=== PATIENT | female | born 1980 | race Caucasian/White ===

== ENCOUNTER 2019-09-04 13:14 | Emergency (ER) | payer OTHER ==
[~2019-09-04] VITALS: Ht 167.6 cm; Wt 77.1 kg
[~2019-09-04 13:14] MED LIST: ADDERALL 20 MG20 M1; ALLEGRA180 MG; AUGMENTIN 875875 MG PO; CELEXA 20 MG TA20 M1; CHLOR-TRIMETON12 MG PO; FLOXIN OTI0.3 %/5 ML OTIC; IBUPROFEN 800800 MG PO; LAMICTAL; NORCO 5-325 TA1 EACH PO; PHENERGAN 25 MG25 M1 PO; PRENATAL; TAMSULOSIN HCL0.4 M1 PO; TIROSINT75 MCG PO; ULTRAM 50MG TAB50 MG PO; ZENCHENT FE TA1 EACH PO; ZEOSA CHEWABLE1 EACH
[2019-09-04] MEDS ORDERED: LARIN FE 1-201 EACH PO (13:28)
[2019-09-04] MEDS ORDERED: LEXAPRO20 MG PO (13:29)
[2019-09-04] MEDS ORDERED: ADDERALL XR 2020 MG PO (13:29)
[2019-09-04 15:26] VITALS: BP 120/78
== END 2019-09-04 15:28 | disposition home or self-care (01) ==
LOC: M.ERS 13:14
DX: R51 Headache (principal); R42 Dizziness and giddiness; Z90.89 Acquired absence of other organs; Z98.890 Other specified postprocedural states; Z88.5 Allergy status to narcotic agent; Z88.8 Allergy status to other drugs, medicaments and biological substances